=== PATIENT | female | born 1980 | race Caucasian/White ===

== ENCOUNTER 2019-04-13 19:17 | Emergency (ER) | payer MEDICAID ==
[~2019-04-13] VITALS: Ht 144.8 cm; Wt 62.7 kg
[~2019-04-13 19:17] MED LIST: BUTA1CAP38 PO; ONDA4TAB8 PO
[2019-04-13 19:39] VITALS: BP 149/71; PULSE 76; RESP 18; Ht 144.8 cm; Wt 62.7 kg
[2019-04-13] MEDS ORDERED: KETOROLAC 30 MG INJ IM STA (20:48)
[2019-04-13] MEDS ORDERED: ONDANSETRON (ODT) 4 MG TAB ODT STA (20:48)
[2019-04-13] MEDS ORDERED: MECLIZINE 12.5 MG TAB PO ONE (21:00)
== END 2019-04-13 21:30 | disposition home or self-care (01) ==
LOC: FTE 19:17
DX: R51 Headache (principal)
CPT/HCPCS: 81025; 96372; J1885; Z7502; Z7610